=== PATIENT | female | born 1990 ===

== ENCOUNTER 2022-01-30 16:39 | Emergency (ER) | payer SELFPAY | END 2022-01-30 20:05 | disposition home or self-care (01) | LOC: LL.ED 16:39 | DX: O26.851 Spotting complicating pregnancy, first trimester (principal); Z3A.08 8 weeks gestation of pregnancy | CPT/HCPCS: 36415; 81003; 84702; 99283; 99284 ==

== ENCOUNTER 2022-10-14 16:21 | Emergency (ER) | payer SELFPAY | END 2022-10-14 17:20 | disposition home or self-care (01) | LOC: LL.ED 16:21 | DX: Z32.00 Encounter for pregnancy test, result unknown (principal) | CPT/HCPCS: 36415; 84702; 85025; 99282; 99283 ==